=== PATIENT | male | born 1970 | race Caucasian/White ===

== ENCOUNTER 2018-04-08 19:15 | Emergency (ER) | payer BC, MEDICAID ==
[2018-04-08] MEDS: HYDROCODONE/APAP (5/325) TAB PO (22:41)
[2018-04-08 22:48] LABS: ADD UMIC NO; UR ASCORBIC ACID NEGATIVE (NEGATIVE); UR BILIRUBIN (Dip) NEGATIVE (NEGATIVE); UR BLOOD (Dip) NEGATIVE (NEGATIVE); UR CLARITY CLEAR (CLEAR); UR COLOR YELLOW (YELLOW); UR GLUCOSE (Dip) NEGATIVE (NEGATIVE); UR KETONES (Dip) NEGATIVE (NEGATIVE); UR LEUKOCYTE ESTERASE (Dip) NEGATIVE Leu/ul (NEGATIVE); UR NITRITE (Dip) NEGATIVE (NEGATIVE); UR SPECIFIC GRAVITY (Dip) 1.016 (1.003-1.030); UR TOTAL PROTEIN (Dip) NEGATIVE (NEGATIVE); UR UROBILINOGEN (Dip) NEGATIVE (NEGATIVE)
== END 2018-04-08 23:42 | disposition home or self-care (01) ==
LOC: E/R 23:42
DX: S70.01XA Contusion of right hip, initial encounter (principal); S39.91XA Unspecified injury of abdomen, initial encounter; S93.602A Unspecified sprain of left foot, initial encounter; W22.8XXA Striking against or struck by other objects, initial encounter; Y92.89 Other specified places as the place of occurrence of the external cause
CPT/HCPCS: 73510; 73630-LT; 74176; 81003; 99284-25